=== PATIENT | male | born 1970 | race Caucasian/White ===

== ENCOUNTER 2019-07-16 17:22 | Outpatient (CLI) | payer OTHER, SELFPAY ==
--- NOTE | ~2019-07-16 | XR_ITS ---
EXAMINATION: XR chest 2V EXAM DATE: 07/16/2019 17:38 INDICATION: Cough. TECHNIQUE: Frontal and lateral projections of the chest obtained and reviewed. There is no prior ayden dy for comparison. FINDINGS: The lungs are clear. There are no pleural effusions. The cardiomediastinal silhouette is within normal limits. There is no pneumothorax suspected. The bones and soft tissues are unremarkab le. IMPRESSION: No acute cardiopulmonary findings. Reviewed, dictated and finalized at location A. ALS NURSE
== END 2019-07-16 17:23 | disposition home or self-care (01) ==
LOC: ANHIMG 17:25
PROVIDERS: PCP Emergency Medicine; Visit Provider Emergency Medicine
DX: R05 Cough (principal)
CPT/HCPCS: 71046

== ENCOUNTER 2020-04-13 14:47 | Outpatient (CLI) | payer OTHER, SELFPAY ==
--- NOTE | ~2020-04-13 | CT_ITS ---
EXAMINATION: CT abdomen pelvis wo con DATE: 04/13/2020 15:07 INDICATION: Left flank pain. TECHNIQUE: Computed tomography (CT) of the abdomen and pelvis was performed without intravenous contr ast. Automated exposure control and iterative reconstruction technique were employed. The dose-length product was 866.75 mGy-cm. COMPARISON: None. FINDINGS: The visualized portions of the lung bases demonstrate mild emphysema. No pleural effusion. The heart size is normal. There are coronary artery calcifications. No pericardial effusion. There is diffuse hepatic steatosis. There is a 9 mm cyst in the liver. The gallbladder, spleen, pancreas, adr enal glands, and kidneys are normal. There is no urolithiasis. There is a left inguinal hernia contai miriam fat. There are no dilated loops of bowel. The appendix is normal. There are no pathologically en larged lymph nodes. There is no free intraperitoneal fluid. There is mild thoracolumbar spondylosis. There are chronic bilateral L5 pars defects without spondylolisthesis. There is mild chronic anterior wedging of multiple thoracic vertebral bodies. IMPRESSION: 1. No urolithiasis. 2. Left inguinal hernia containing fat. Reviewed, dictated and finalized at location A. S REPRESENTATIVE
--- NOTE | ~2020-04-13 | XR_ITS ---
EXAMINATION: XR abdomen/kub 1V DATE: 04/13/2020 15:05 INDICATION: Left flank pain. TECHNIQUE: A supine view of the abdomen on 2 radiographs was obtained. COMPARISON: CT abdomen and pelvis 04/13/2020 FINDINGS: There are no dilated loops of bowel. There is no urolithiasis. IMPRESSION: 1. No urolithiasis. Reviewed, dictated and finalized at location A. GATION SYSTEM OPERATOR IMPRESSION: 1. No urolithiasis.
== END 2020-04-13 14:48 | disposition home or self-care (01) ==
PROVIDERS: PCP Emergency Medicine; Visit Provider Nurse Practitioner Adult Health
DX: R10.9 Unspecified abdominal pain (principal); K40.90 Unilateral inguinal hernia, without obstruction or gangrene, not specified as recurrent
CPT/HCPCS: 74018; 74176

== ENCOUNTER 2023-08-01 15:00 | Outpatient (CLI) | payer OTHER, SELFPAY ==
--- NOTE | ~2023-08-01 | XR_ITS ---
XR heel RT min 2V DATE: 08/01/2023 15:19 INDICATION: Right foot pain TECHNIQUE: Axial and lateral views COMPARISON: None FINDINGS: There is prominent plantar and mild posterior calcaneal enthesopathy, without associated er osive change or periostitis. No calcaneal fracture or bone destruction is evident. IMPRESSION: Calcaneal enthesopathy Reviewed, dictated and finalized at location L. IMPRESSION: Calcaneal enthesopathy
== END 2023-08-01 15:01 ==
PROVIDERS: PCP Physician Assistant; Visit Provider Physician Assistant
DX: M77.31 Calcaneal spur, right foot (principal)
CPT/HCPCS: 73650

== ENCOUNTER 2024-04-30 15:40 | Outpatient (CLI) | payer OTHER, SELFPAY ==
--- NOTE | ~2024-04-30 | XR_ITS ---
XR chest 2V Ordering provider: Moraima Villegas, JES History: 53 years Male with . cough . Comparison: Scott 08/02/2019 FINDINGS: MEDIASTINUM: The cardiac silhouette is not enlarged. LUNGS: No infiltrates, effusions or pneumothorax. Slightly prominent markings in the left lung base w hich may indicate bronchiolitis versus atelectasis. Early pneumonia cannot be excluded. OTHER: No free air under the diaphragm. IMPRESSION: Prominent bronchovascular markings in the left lower lumbar area. Atelectasis versus radha y pneumonia. Follow-up advised. Reviewed, dictated and finalized at location A. [employer] E[employer] CONSULTANT IMPRESSION: Prominent bronchovascular markings in the left lower lumbar area. A telectasis versus early pneumonia. Follow-up advised.
== END 2024-04-30 15:41 | disposition home or self-care (01) ==
LOC: MICIMG 15:41
PROVIDERS: PCP Physician Assistant; Visit Provider Physician Assistant
DX: R91.8 Other nonspecific abnormal finding of lung field (principal); R05.9 Cough, unspecified
CPT/HCPCS: 71046